=== PATIENT | male | born 1990 | race African-American/Black ===

== ENCOUNTER 2018-06-28 22:37 | Emergency (ER) | payer OTHER ==
[~2018-06-28] VITALS: Ht 182.9 cm; Wt 105.0 kg
[2018-06-29] MEDS ORDERED: IBUPROFEN 600MG TABLET PO ONE (00:15)
[2018-06-29] MEDS ORDERED: HYDROCODONE/ACETAMINOPHEN 5/325MG TABLET PO ONE (01:30)
[2018-06-29 02:10] VITALS: BP 111/65
== END 2018-06-29 02:17 | disposition home or self-care (01) ==
LOC: ER 22:37
DX: S62.314A Displaced fracture of base of fourth metacarpal bone, right hand, initial encounter for closed fracture (principal); W22.8XXA Striking against or struck by other objects, initial encounter; Y93.89 Activity, other specified; Y92.89 Other specified places as the place of occurrence of the external cause; Y99.8 Other external cause status
CPT/HCPCS: 29125; 73110; 73130; 99283; A4565

== ENCOUNTER 2018-06-30 22:01 | Emergency (ER) | payer OTHER ==
[~2018-06-30] VITALS: Ht 182.9 cm; Wt 109.4 kg
[2018-06-30] MEDS ORDERED: HYDROCODONE/ACETAMINOPHEN 5/325MG TABLET PO ONE (22:30)
[2018-06-30 22:37] VITALS: BP 147/99
== END 2018-06-30 22:46 | disposition home or self-care (01) ==
LOC: ER 22:01
DX: S62.394A Other fracture of fourth metacarpal bone, right hand, initial encounter for closed fracture (principal); W25.XXXA Contact with sharp glass, initial encounter; Y93.89 Activity, other specified; Y92.89 Other specified places as the place of occurrence of the external cause; Y99.8 Other external cause status; Z88.2 Allergy status to sulfonamides
CPT/HCPCS: 29125; 99283